=== PATIENT | female | born 1970 | race Caucasian/White ===

== ENCOUNTER 2017-08-21 20:41 | Emergency (ER) | payer OTHER ==
[~2017-08-21] VITALS: Ht 174 cm; Wt 70.4 kg
[~2017-08-21 20:41] MED LIST: B12-1CHW CHEW; COLA100C3 PO; HYDR-3583 PO; LORA-361 PO; LORA1TAB12 PO; MIRA3350; VENL75TA PO
[2017-08-21 21:14] VITALS: BP 113/50; PULSE 72; RESP 18; TEMP 98; O2SAT 100
[2017-08-21] MEDS ORDERED: OMEGCAP PO (21:34)
[2017-08-21] MEDS ORDERED: DOCU100C PO (21:34)
[2017-08-21] MEDS ORDERED: LAMI200T PO (21:34)
[2017-08-21] MEDS ORDERED: VITA10004 PO (21:34)
[2017-08-21] MEDS ORDERED: ADDE30TA PO (21:34)
[2017-08-21] MEDS ORDERED: SODIUM CHLOR 0.9% 1000 ML INJ 1,000 ML IV SCH (22:07)
[2017-08-21] MEDS ORDERED: SODIUM CHLORIDE 0.9% FLUSH 10 ML FLUSH IV FLUSH PRN (22:15)
[2017-08-21] MEDS ORDERED: ONDANSETRON HCL 4 MG/2 ML VIAL IVP ONE (22:15)
[2017-08-21 22:26] LABS: AUTOMATED NEUTROPHIL # 3.6 TH/MM3 (1.8-7.7); BASOPHIL % 0.4 % (0.0-2.0); EOSINOPHIL # 0.2 TH/MM3 (0-0.4); EOSINOPHIL % 3.5 % (0.0-4.0); HEMATOCRIT 35.4 % (35.0-46.0); HEMO FLAGS DIFF FINAL; LYMPH % 24.7 % (9.0-44.0); LYMPHOCYTE # 1.3 TH/MM3 (1.0-4.8); MEAN CELL VOLUME 93.6 FL (80.0-100.0); MEAN CORPUSCULAR HEMOGLOBIN 31.7 PG (27.0-34.0); MEAN CORPUSCULAR HGB CONC 33.8 % (32.0-36.0); MONO % 5.2 % (0.0-8.0); NEUT % 66.2 % (16.0-70.0); PLATELET COUNT 204 TH/MM3 (150-450); RED BLOOD COUNT 3.79 MIL/MM3 (4.00-5.30); RED CELL DISTRIBUTION WIDTH 11.4 % (11.6-17.2); WHITE BLOOD COUNT 5.4 TH/MM3 (4.0-11.0)
[2017-08-21 22:48] LABS: CHLORIDE 104 MEQ/L (98-107); POTASSIUM 3.6 MEQ/L (3.5-5.1); SODIUM (NA) 137 MEQ/L (136-145)
[2017-08-21 22:52] LABS: ANION GAP 6 MEQ/L (5-15); BICARBONATE 27.3 MEQ/L (21.0-32.0); BLOOD UREA NITROGEN 9 MG/DL (7-18); MAGNESIUM 2.1 MG/DL (1.5-2.5)
[2017-08-21 22:55] LABS: ALT (GPT) 28 U/L (10-53); APTT (PATIENT) 26.6 SEC (24.3-30.1); AST (GOT) 15 U/L (15-37); GLOMERULAR FILTRATION RATE 82 ML/MIN (>89); INTERNATIONAL NORMALIZED RATIO 0.9 RATIO; PROTHROMBIN TIME - PATIENT 10.2 SEC (9.8-11.6)
[2017-08-21 22:56] LABS: TOTAL BILIRUBIN ADULT 0.7 MG/DL (0.2-1.0)
[2017-08-21 22:58] LABS: ALKALINE PHOSPHATASE 64 U/L (45-117)
[2017-08-21 23:15] VITALS: BP 100/58; PULSE 74; RESP 16; O2SAT 100
[2017-08-21 23:31] LABS: BLOOD, URINE NEG (NEG); GLUCOSE,URINE NEG (NEG); KETONE, URINE 15 mg/dL (NEG); NITRITE,URINE NEG (NEG)
[2017-08-21 23:56] LABS: URINE COLOR YELLOW (YELLW/STRAW)
[2017-08-21 23:57] LABS: CULTURE IF INDICATED CULT NOT INDICATED; MUCUS URINE OCC /lpf (OCC); RBC, URINE 0-3 /hpf (0-3); SQUAMOUS EPITHELIAL CELL URINE > 8 /hpf (0-5); WBC, URINE 0-2 /hpf (0-5)
[2017-08-21 23:58] LABS: COMMENT (UR) CULT NOT INDICATED
[2017-08-22] MEDS ORDERED: DIATRIZOATE MEGLUM/DIATRIZOATE SOD 9 ML CUP ONE (00:08)
[2017-08-22] MEDS ORDERED: ONDANSETRON HCL 4 MG/2 ML VIAL IV PUSH ONE (00:15)
[2017-08-22] MEDS ORDERED: IOHEXOL 350 MG/ML 10 ML VIAL (for RAD DIAG) IVCONTRAST ONE (01:53)
--- NOTE | 2017-08-22 02:03 | RADRPT ---
EXAM DATE/TIME: 08/22/2017 01:37 [place] COMPARISON: No previous studies available for comparison. INDICATIONS : Abdominal pain. Constipation. IV CONTRAST: 100 cc Omnipaque 350 (iohexol) IV ORAL CONTRAST: Prescribed oral contrast ingested. RADIATION DOSE: 9.02 CTDIvol (mGy) MEDICAL HISTORY : Pancreatitis. SURGICAL HISTORY : section. Laminectomy. ENCOUNTER: Initial ACUITY: 2 weeks PAIN SCALE: 3/10 LOCATION: Bilateral abdomen and pelvis TECHNIQUE: Volumetric scanning of the abdomen and pelvis was performed. Using automated exposure control and ad justment of the mA and/or kV according to patient size, radiation dose was kept as low as reasonably achievable to obtain optimal diagnostic quality images. DICOM format image data is available electro nically for review and comparison. FINDINGS: LOWER LUNGS: The visualized lower lungs are clear. LIVER: Homogeneous fatty density without lesion. There is no dilation of the biliary tree. No calcified ga llstones. SPLEEN: Normal size without lesion. PANCREAS: Within normal limits. KIDNEYS: Normal in size and shape. There is no mass, stone or hydronephrosis. ADRENAL GLANDS: Within normal limits. VASCULAR: There is no aortic aneurysm. BOWEL/MESENTERY: The stomach, small bowel, and colon demonstrate no acute abnormality. There is no free intraperitone al air or fluid. Well-visualized appendix, normal. ABDOMINAL WALL: Within normal limits. RETROPERITONEUM: There is no lymphadenopathy. BLADDER: No wall thickening or mass. REPRODUCTIVE: There is an approximately 23 mm simple appearing cyst of the left ovary. No free fluid. INGUINAL: There is no lymphadenopathy or hernia. MUSCULOSKELETAL: Within normal limits for patient age. CONCLUSION: 1. No obstruction or acute inflammatory changes. 2. Normal amount of stool in the colon. 3. 23 mm benign appearing left ovarian cyst. 4. Fatty liver. Guillermo Suarez MD on August 22, 2017 at 2:00 Board Certified Radiologist. This report was verified electronically.
--- NOTE | 2017-08-22 02:16 | PD ---
HPI Chief Complaint: GI Complaint Time Seen by Provider: 22:07 Travel History International Travel<30 days: No Contact w/Intl Traveler<30days: No Traveled to known affect area: No History of Present Illness HPI 47-year-old female presents to the emergency department by private transportation for complaint of 3 weeks of intermittent constipation 5 days at a time with consult to send stool no melena or hematochezia. Patient has had poor appetite. Today she had nausea and vomiting. No fever or chills. No dysuria frequency or urgency. Patient states over the past 8 months with exercise and dietary changes she's lost approximately 30 pounds. Patient has had no abrupt loss of weight. Patient does not report any vaginal bleeding or discharge or pelvic pain. Patient denies any recent respiratory illness. Patient has history of colonic polyps and has a colonoscopy every 3 years and is due for a colonoscopy soon. 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 Patient has history of chronic recurrent constipation and has required use of laxatives in the past. Patient states for the past 2 weeks she's been using enemas and has had minimal relief. Patient oftentimes uses MiraLAX in the evening. Patient denies other concerns or complaints. Patient is able to give her exacerbating or alleviating factors. Patient rates abdominal discomfort 3-4 /10 in intensity. PFSH Past Medical History Narrative Medical Anxiety depression constipation fibromyalgia laminectomy occasional alcohol use nursing notes reviewed ADHD: Yes Arthritis: Yes (OSTEOARTHRITIS) Anxiety: Yes Depression: Yes Cancer: No Cardiovascular Problems: No Diabetes: No Diminished Hearing: No Endocrine: No Fibromyalgia: Yes Gastrointestinal Disorders: Yes (ABNORMAL POLYP: LAST COLONSOSCOPY DEC 2014) Genitourinary: No Herniated Disk: Yes Immune Disorder: No Musculoskeletal: Yes Neurologic: Yes (DEGENERATIVE DISC DISEASE; SPINAL STENOSIS) Psychiatric: No Reproductive: No Respiratory: No Pancreatitis: Yes Thyroid Disease: No Ulcer: Yes (AGE 13) Tetanus Vaccination: < 5 Years ?: Unknown LMP: 3 WEEKS AGO : 1 Para: 1 Past Surgical History Section: Yes Gynecologic Surgery: Yes () Other Surgery: Yes (LAMINECTOMY) Social History Alcohol Use: Yes ("SOCIALLY WEEKENDS") Tobacco Use: No (QUIT 2006) Substance Use: No Allergies-Medications (Allergen,Severity, Reaction): Coded Allergies: cefepime (Unverified Allergy, Mild, 08/21/17) ceftaroline fosamil (Unverified Allergy, Mild, 08/21/17) pregabalin (Unverified Allergy, Mild, Rash, 08/21/17) zinc (Unverified Allergy, Mild, Rash, 08/21/17) zinc oxide (Unverified Allergy, Mild, Rash, 08/21/17) duloxetine (Unverified Allergy, Unknown, 08/21/17) Reported Meds & Prescriptions Reported Meds & Active Scripts Active Reported [place]-3 Fish Oil/Vitamin (Fish Oil-Cholecalciferol) 1,000-1,000 Mg Cap 1 Cap PO DAILY Lamictal (Lamotrigine) 200 Mg Tab 300 Mg PO HS Adderall (Amphetamine-Dextroamphetamine) 30 Mg Tab 30 Mg PO DAILY Avoid late evening doses. Space doses at least 4 to 6 hours if more than once/day dosing. Vitamin B12 Tr (Cyanocobalamin) 1,000 Mcg Tab 1,000 Mcg PO DAILY Docusate Sodium 100 Mg Cap 100 Mg PO BID PRN Lorazepam 1 Mg Tab 1 Mg PO DAILY PRN Miralax Powder (Polyethylene Glycol 3350 Powder) 1 Pow Pow Effexor (Venlafaxine HCl) 75 Mg Tab 75 Mg PO DAILY Review of Systems Except as stated in HPI: all other systems reviewed are Neg General / Constitutional: No: Fever, Chills HENT: No: Congestion Cardiovascular: No: Chest Pain or Discomfort Respiratory: No: Shortness of Breath Gastrointestinal: Positive: Nausea, Vomiting, Abdominal Pain, Constipation, No : Diarrhea Genitourinary: No: Dysuria Musculoskeletal: No: Myalgias, Arthralgias Skin: No Rash Neurologic: No: Weakness Hematologic/Lymphatic: No: Easy Bruising Physical Exam Narrative GENERAL: Well-developed well-nourished female in acute distress no respiratory distress SKIN: Warm and dry. HEAD: Normocephalic. EYES: No scleral icterus. No injection or drainage. NECK: Supple, trachea midline. No JVD or lymphadenopathy. CARDIOVASCULAR: Regular rate and rhythm without murmurs, gallops, or rubs. RESPIRATORY: Breath sounds equal bilaterally. No accessory muscle use. GASTROINTESTINAL: Abdomen soft, non-tender, nondistended. No guarding or rebound. MUSCULOSKELETAL: No cyanosis, or edema. BACK: Nontender without obvious deformity. No CVA tenderness. Data Data Last Documented VS Vital Signs Date Time Temp Pulse Resp B/P (MAP) Pulse Ox O2 Delivery O2 Flow Rate FiO2 08/21/17 23:15 74 16 100/58 (72) 100 Room Air 08/21/17 21:14 98.0 Orders Orders Complete Blood Count With Diff (08/21/17 22:07) Comprehensive Metabolic Panel (08/21/17 22:07) Lipase (08/21/17 22:07) Lactic Acid (08/21/17 22:07) Prothrombin Time / Inr (Pt) (08/21/17 22:07) Act Partial Throm Time (Ptt) (08/21/17 22:07) Urinalysis - C+S If Indicated (08/21/17 22:07) Iv Access Insert/Monitor (08/21/17 22:07) Ecg Monitoring (08/21/17 22:07) Oximetry (08/21/17 22:07) Ondansetron Inj (Zofran Inj) (08/21/17 22:15) Sodium Chlor 0.9% 1000 Ml Inj (Ns 1000 M (08/21/17 22:07) Sodium Chloride 0.9% Flush (Ns Flush) (08/21/17 22:15) Magnesium (Mg) (08/21/17 22:07) Ondansetron Inj (Zofran Inj) (08/22/17 00:15) Oral Contrast - Adult (08/22/17 00:05) Ct Abd/Pel W Iv Contrast(Rout) (08/22/17 ) Diatrizoate Liq ( Gastroview Liq) (08/22/17 00:08) Iohexol 350 Inj (Omnipaque 350 Inj) (08/22/17 01:53) Labs Laboratory Tests Test 08/21/17 22:19 08/21/17 23:10 White Blood Count 5.4 TH/MM3 Red Blood Count 3.79 MIL/MM3 Hemoglobin 12.0 GM/DL Hematocrit 35.4 % Mean Corpuscular Volume 93.6 FL Mean Corpuscular Hemoglobin 31.7 PG Mean Corpuscular Hemoglobin Concent 33.8 % Red Cell Distribution Width 11.4 % Platelet Count 204 TH/MM3 Mean Platelet Volume 8.3 FL Neutrophils (%) (Auto) 66.2 % Lymphocytes (%) (Auto) 24.7 % Monocytes (%) (Auto) 5.2 % Eosinophils (%) (Auto) 3.5 % Basophils (%) (Auto) 0.4 % Neutrophils # (Auto) 3.6 TH/MM3 Lymphocytes # (Auto) 1.3 TH/MM3 Monocytes # (Auto) 0.3 TH/MM3 Eosinophils # (Auto) 0.2 TH/MM3 Basophils # (Auto) 0.0 TH/MM3 CBC Comment DIFF FINAL Differential Comment Prothrombin Time 10.2 SEC Prothromb Time International Ratio 0.9 RATIO Activated Partial Thromboplast Time 26.6 SEC Blood Urea Nitrogen 9 MG/DL Creatinine 0.76 MG/DL Random Glucose 75 MG/DL Total Protein 6.8 GM/DL Albumin 3.6 GM/DL Calcium Level 8.9 MG/DL Magnesium Level 2.1 MG/DL Alkaline Phosphatase 64 U/L Aspartate Amino Transf (AST/SGOT) 15 U/L Alanine Aminotransferase (ALT/SGPT) 28 U/L Total Bilirubin 0.7 MG/DL Sodium Level 137 MEQ/L Potassium Level 3.6 MEQ/L Chloride Level 104 MEQ/L Carbon Dioxide Level 27.3 MEQ/L Anion Gap 6 MEQ/L Estimat Glomerular Filtration Rate 82 ML/MIN Lactic Acid Level 0.6 mmol/L Lipase 113 U/L Urine Color YELLOW Urine Turbidity CLEAR Urine pH 8.0 Urine Specific [place] 1.017 Urine Protein NEG mg/dL Urine Glucose (UA) NEG mg/dL Urine Ketones 15 mg/dL Urine Occult Blood NEG Urine Nitrite NEG Urine Bilirubin NEG Urine Leukocyte Esterase NEG Urine RBC 0-3 /hpf Urine WBC 0-2 /hpf Urine Squamous Epithelial Cells > 8 /hpf Urine Mucus OCC /lpf Microscopic Urinalysis Comment CULT NOT INDICATED MDM Medical Decision Making Medical Screen Exam Complete: Yes Emergency Medical Condition: Yes Medical Record Reviewed: Yes Interpretation(s) CT abd/pel: CONCLUSION: 1. No obstruction or acute inflammatory changes. 2. Normal amount of stool in the colon. 3. 23 mm benign appearing left ovarian cyst. 4. Fatty liver. Guillermo Suarez MD on August 22, 2017 at 2:00 Board Certified Radiologist. This report was verified electronically. Differential Diagnosis Constipation intestinal mass bowel obstruction Narrative Course Specimens collected and sent for resulting; lab values found to be in normal range; patient reports that her stool has been pencil thin therefore proceed with CT abdomen and pelvis to evaluate for intestinal mass. CT abdomen and pelvis with oral and IV contrast reveals no acute abnormality except for a 2.3 cm left ovarian cyst Patient informed of imaging results and patient is satisfied with lab work and CT results will follow-up with her distillery worker as planned Patient given prescription for Zofran. Diagnosis Primary Impression: Constipation Qualified Codes: K59.01 - Slow transit constipation Referrals: [facility] call for appointment Patient Instructions: General Instructions Departure Forms: Tests/Procedures, Work Release Special Instructions: no work x 1 day Additional Instructions: Increase fluid hydration recommend clear liquid diet for 12-24 hours advance as tolerated Add MiraLAX to GI regimen over the next 3-4 days; follow package directions May use magnesium citrate per package directions Monitor temperature for fever take acetaminophen as needed for fever 100.4F or greater Follow-up with distillery worker return to the emergency department for any concerns or change in condition Med/Other Pt SpecificInfo: Prescription(s) given Scripts Ondansetron Odt (Zofran Odt) 4 Mg Tab 4 MG SL Q6HR Y for Nausea/Vomiting, #10 TAB 0 Refills Prov: Sandy Cartagena MD 08/22/17 Disposition: 01 DISCHARGE HOME Condition: Stable Sandy Cartagena MD Aug 22, 2017 02:16
[2017-08-22] MEDS ORDERED: ZOFR4TAB3 SL (02:27)
[2017-08-22 02:36] VITALS: BP 110/58
== END 2017-08-22 02:38 | disposition home or self-care (01) ==
LOC: PHED 20:41
DX: K59.01 Slow transit constipation (principal); K76.0 Fatty (change of) liver, not elsewhere classified; K85.90 Acute pancreatitis without necrosis or infection, unspecified; M79.7 Fibromyalgia
CPT/HCPCS: 74177; 80053; 81001; 83605; 83690; 83735; 85025; 85610; 85730; 96361; 96374; 96376; 99285; J2405; J7030; Q9963; Q9967